=== PATIENT | female | born 1955 | race Caucasian/White ===

== ENCOUNTER → 2024-11-16 09:28 | Outpatient (REF) | payer MEDICARE, OTHER, SELFPAY | LOC: MRI 09:28 | PROVIDERS: ATTENDING PHYSICIAN Surgery; FAMILY PHYSICIAN Family Medicine | DX: R19.03 Right lower quadrant abdominal swelling, mass and lump (principal) | CPT/HCPCS: 72197; 74183; A9575 ==

== ENCOUNTER 2025-01-27 06:06 | Inpatient (IN) | payer MEDICARE, OTHER, SELFPAY ==
[2025-01-18 09:20] LABS: Hematocrit 34.8 % (37.0-47.0); Hemoglobin 11.6 g/dL (12.0-16.0); Mean Corp Hgb Conc. 33.3 g/dL (33.0-37.0); Mean Corpuscular Volume 90.2 fL (81.0-99.0); Platelet Count 289 10^3/uL (130-400); Red Cell Dist. Width 12.9 % (11.5-14.5)
[2025-01-18 09:33] LABS: INR 0.87; PT 12.3 Sec (11.4-14.6)
[2025-01-18 09:34] LABS: APTT 31.2 Sec (23.4-35.0)
[2025-01-18 09:55] LABS: ALT (SGPT) 17 U/L (0-35); AST (SGOT) 21 U/L (14-36); Albumin 4.2 g/dl (3.5-5.0); Alkaline Phosphatase 120 U/L (38-126); Blood Urea Nitrogen 16 mg/dl (7-17); Calcium 9.5 mg/dl (8.4-10.2); Carbon Dioxide 29 mmol/L (22-30); Chloride 103 mmol/L (98-107); Glucose 91 mg/dl (70-99); Potassium 4.0 mmol/L (3.5-5.1); Sodium 139 mmol/L (135-145); Total Protein 6.9 g/dl (6.3-8.2); eGFR > 60.00
[2025-01-18 10:22] LABS: CEA 2.01 ng/ml
[2025-01-18 11:33] LABS: Glycohemoglobin (HgbA1c) 5.7 % (4.0-5.6)
[2025-01-18 14:05] VITALS: BMI 25.4
--- NOTE | 2025-01-18 16:47 | PTCARENOTE ---
Abnormal ECG done 01/18/25, reviewed by Dr Laurent, no further intervention needed.
[2025-01-27] VITALS (17 sets, daily range): BP systolic 93–149; BP diastolic 41–78; BMI 25.4
[2025-01-27] MEDS: TYLENOL 1000 MG PO (07:07)
[2025-01-27] MEDS: HEPARIN 5000 UNITS SC (07:08)
[2025-01-27] MEDS: NORMOSOL-R/PLASMALYTE-A 1000 IV ×2 (07:08→15:08)
[2025-01-27] MEDS: TRANSDERM-SCOP 1 PATCH TRANSDERM (07:10)
--- NOTE | 2025-01-27 10:16 | W.IMMPOSTOP ---
Surgical Immed Post Op Note
-
Primary Surgeon: Vania Carson DO
Expedition Supervisor: NARINDER Ryder
Pre-op Diagnosis: left ovarian cyst
Post-op Diagnosis: same
Procedure Performed: Robotic left salpingo-oopherectomy
Anesthesia Type: general ET
Specimen / Cultures: left tube and ovary
Estimated Blood Loss: 2ml
Complications: none
Operative Findings: Simple appearing left ovarian cyst approx 3cm. Normal appearing uterus, tubes and atrophic right ovary.
Stable when handed care back over to Dr Moy.
--- NOTE | 2025-01-27 10:29 | W.IMMPOSTOP ---
Surgical Immed Post Op Note
-
Primary Surgeon: Vania Carson DO
Assistant Front Office Manager: NARINDER Ryder
Pre-op Diagnosis: Left ovarian cyst
Post-op Diagnosis: same
Procedure Performed: Robotic left salpingo-oopherectomy
Anesthesia Type: general ET
Specimen / Cultures: left tube and ovary
Estimated Blood Loss: <2ml
Complications: none
Operative Findings: Normal appearing uterus. Left ovary with approx 3cm cyst, appears relatively simple grossly.
Normal appearing bilateral tubes and atrophic appearing but otherwise normal appearing right ovary.
Counts correct times 2.
Stable to recovery.
--- NOTE | 2025-01-27 12:28 | W.IMMPOSTOP ---
Surgical Immed Post Op Note
-
Primary Surgeon: Rizwan Moy MD
Laboratory Director: Vania Carson DO
Physicist Cryogenics: DEE Ryder
Pre-op Diagnosis: Right lower quadrant mass
Post-op Diagnosis: Same, with left ovarian cyst
Procedure Performed: Robotic ilecolectomy with intracorporeal anastomosis
Robotic left salpingo-oophorectomy
Anesthesia Type: GET
Specimen / Cultures: Terminal ileum and right colon
Left fallopian tube and ovary
Estimated Blood Loss: 50cc
Complications: None
Operative Findings: Mass in the right lower quadrant (probable chronic appendicitis)
4cm cyst of the left ovary
Patient's updated in the waiting room
--- NOTE | 2025-01-27 14:30 | PTCARENOTE ---
Addendum entered by Vee Xavier RN 01/27/25 16:56:
patient has 5 post op incisions approximated and surgical glue.
Original Note:
Telephone report received from TERRA[employer] HELPERJUICE Henriquez; patient arrived in bed @14:30 with moscoso catheter and 94% on 3L; VSS.
[2025-01-27] MEDS: TORADOL 15 MG IV ×2 (16:11→21:47)
[2025-01-28] MEDS: NORMOSOL-R/PLASMALYTE-A 1000 IV ×3 (00:45→21:36)
[2025-01-28 03:40] VITALS: BP 96/41
[2025-01-28] MEDS: TORADOL 15 MG IV ×4 (04:24→21:36)
[2025-01-28 06:00] VITALS: BMI 25.7
[2025-01-28 06:42] LABS: Hematocrit 29.1 % (37.0-47.0); Hemoglobin 9.4 g/dL (12.0-16.0); Mean Corp Hgb Conc. 32.3 g/dL (33.0-37.0); Mean Corpuscular Volume 91.8 fL (81.0-99.0); Nucleated Red Blood Cells % 0 %; Platelet Count 234 10^3/uL (130-400); Red Cell Dist. Width 13.0 % (11.5-14.5)
[2025-01-28 07:12] LABS: Blood Urea Nitrogen 10 mg/dl (7-17); Calcium 7.6 mg/dl (8.4-10.2); Carbon Dioxide 32 mmol/L (22-30); Chloride 104 mmol/L (98-107); Estimated Creatinine Clearance 79 ml/min; Glucose 103 mg/dl (70-99); Potassium 3.6 mmol/L (3.5-5.1); Sodium 137 mmol/L (135-145); eGFR > 60.00
[2025-01-28 07:35] VITALS: BP 118/50
[2025-01-28] MEDS: LEXAPRO 10 MG PO (09:08)
[2025-01-28] MEDS: NORVASC 5 MG PO (09:08)
[2025-01-28 12:01] VITALS: BP 106/51
[2025-01-28] MEDS: TYLENOL 650 MG PO ×3 (12:37→20:35)
--- NOTE | 2025-01-28 12:48 | W.PN.CRS1 ---
Today's Communication / Plan
-
as below
Assessment/Plan
-
69-year-old female with RLQ inflammatory mass, concerning for possible Crohn's, presents for elective surgery
POD 1 robotic ileocolic resection with left salpingo-oophorectomy by Dr. Carson for ovarian cyst
AFVSS
WBC 10.2, Hb 9.4 from 11.6, CR 0.6
- Due to some distention and lack of bowel function, will keep on clears
� Repeat CBC at 1 PM; if Hb stable, will start DVT PPx with Lovenox
� Pain control with Tylenol, oxycodone and Dilaudid as needed
� Continue home meds
� Encourage incentive spirometry/OOB; appreciate PT
Subjective Data
Subjective Data
Date of Service: January 28, 2025
No overnight events, denies N/V, tolerating clears and pain controlled. No flatus or BMs yet. Hatch in place
Objective Data
-
Vital Signs
Temp Pulse Resp BP Pulse Ox
97.9 F 61 16 106/51 94
01/28/25 12:01 01/28/25 12:01 01/28/25 12:01 01/28/25 12:01 01/28/25 12:01
Intake & Output
01/27/25 01/28/25 01/29/25
06:59 06:59 06:59
Intake Total 1440 / 1440
Output Total 700 / 700
Balance 740 / 740
Intake:
IV fluids (Total) 1440 / 1440
normosol 200 / 200
Output:
Urine, Hatch 500 / 500
Urine, Voided 200 / 200
Lab Results
01/28/25 06:09
Physical Exam
-
General: No Acute Distress and AOx3
HEENT: Grossly Normal
Abdomen: Soft, Distended (Mildly distended), Tender (Appropriately tender near incisions), No Guarding and No Rebound
Skin: Warm and Dry
Wound: No Signs of Infection, Dressing in Place (Dermabond) and No Skin Erythema
[2025-01-28 13:38] LABS: Hematocrit 28.5 % (37.0-47.0); Hemoglobin 9.2 g/dL (12.0-16.0)
--- NOTE | 2025-01-28 14:41 | CM ---
Patient seen bedside w/ spouse, initial assessment completed. POD 1 robotic ileocolic resection with left salpingo-oophorectomy by Dr. Carson for ovarian cyst.
Patient resides w/ spouse in a 2ST[facility], 1 small step to enter from the outside. Patient is independent w/ ambulation, no device required. Independent w/ ADLs and personal care. No DME. No SNF/HC hx. OP therapy hx, nothing current or recent.
Address, point of contact and insurance verified
PCP: Mirian Mcneill
Pharmacy: [facility]
PT indicated no skilled needs at d/c
Plan: Home, no needs
[2025-01-28 15:35] VITALS: BP 113/66
[2025-01-28] MEDS: LOVENOX 40 MG SC (17:51)
[2025-01-28 18:19] LABS: Hepatitis C Antibody Negative (Negative)
[2025-01-28 23:35] VITALS: BP 149/61
[2025-01-29] MEDS: TYLENOL PO ×2 (01:03→04:51)
[2025-01-29] MEDS: NORMOSOL-R/PLASMALYTE-A IV (01:03)
[2025-01-29] MEDS: TORADOL 15 MG IV ×4 (04:18→21:47)
[2025-01-29 06:00] VITALS: BMI 25.2
[2025-01-29 07:44] LABS: Hematocrit 31.4 % (37.0-47.0); Hemoglobin 10.4 g/dL (12.0-16.0); Mean Corp Hgb Conc. 33.1 g/dL (33.0-37.0); Mean Corpuscular Volume 92.4 fL (81.0-99.0); Platelet Count 251 10^3/uL (130-400); Red Cell Dist. Width 13.1 % (11.5-14.5)
[2025-01-29 07:45] VITALS: BP 155/71
[2025-01-29 08:24] LABS: Blood Urea Nitrogen 6 mg/dl (7-17); Calcium 8.4 mg/dl (8.4-10.2); Carbon Dioxide 30 mmol/L (22-30); Chloride 107 mmol/L (98-107); Estimated Creatinine Clearance 79 ml/min; Glucose 104 mg/dl (70-99); Potassium 3.3 mmol/L (3.5-5.1); Sodium 140 mmol/L (135-145); eGFR > 60.00
[2025-01-29] MEDS: LEXAPRO 10 MG PO (09:13)
[2025-01-29] MEDS: NORVASC 5 MG PO (09:13)
[2025-01-29] MEDS: KCL 40 MEQ PO (09:13)
[2025-01-29] MEDS: TYLENOL 650 MG PO ×4 (09:14→21:47)
--- NOTE | 2025-01-29 10:12 | W.PN.CRS1 ---
Addendum entered and electronically signed by Jose Ga MD 01/29/25 18:44:
I saw and examined the patient.
The MICROARRAY ANALYST's note was reviewed and I agree with the note.
Comment:
Doing well, tolerated fulls for lunch, passing flatus and had a BM. Pain better controlled today.
WBC 6.7, Hb stable, CR 0.5
� Advance to low residue
� Continue pain control with Toradol, oxycodone and Dilaudid as needed
� If tolerating diet, possible DC tomorrow
Original Note:
Today's Communication / Plan
-
Full liquids, ADAT
replace K
Assessment/Plan
-
69-year-old female with RLQ inflammatory mass, concerning for possible Crohn's, presents for elective surgery
POD 2 robotic ileocolic resection with left salpingo-oophorectomy by Dr. Carson for ovarian cyst
AFVSS
Mild acute blood loss anemia with component of hemodilution. Stable on repeat.
Renal function stable, mild hypokalemia
+flatus, tolerating clears. Doesn't feel ready for solids yet
Plan:
- FLD
� VTE ppx with lovenox 40mg sq, SCDs while in bed
� Pain control with Tylenol, Toradol scheduled and oxycodone and Dilaudid as needed
� Continue home meds
- D/C IVF
- PO kdur x1 dose, will repeat labs in am
� Encourage incentive spirometry/OOB; appreciate PT
Subjective Data
Procedure
01/27/25 Robotic ilecolectomy with intracorporeal anastomosis ([facility])
Robotic left salpingo-oophorectomy ([facility])
Subjective Data
Date of Service: January 29, 2025
Pt seen and examined at bedside. OOB to chair. Notes pain is much better today. Passing flatus. Denies n/v.
Objective Data
-
Vital Signs
Temp Pulse Resp BP Pulse Ox
98 F 61 16 155/71 97
01/29/25 07:45 01/29/25 07:45 01/29/25 07:45 01/29/25 07:45 01/29/25 07:45
Intake & Output
01/28/25 01/29/25 01/30/25
06:59 06:59 06:59
Intake Total 1440 / 1440 1600 / 1600
Output Total 700 / 700 925 / 925
Balance 740 / 740 675 / 675
Intake:
Oral fluids 560 / 560
IV fluids (Total) 1440 / 1440 1040 / 1040
normosol 200 / 200
Output:
Urine, Hatch 500 / 500
Urine, Voided 200 / 200 925 / 925
Other:
Number of approximated MODERATE 1
amounts of urine
Lab Results
01/29/25 07:25
01/29/25 07:25
Physical Exam
-
General: No Acute Distress and AOx3
HEENT: Grossly Normal
Abdomen: Soft, Non Distended, Tender (Appropriately tender near incisions), No Guarding and No Rebound
Skin: Warm and Dry
Wound: No Signs of Infection, Dressing in Place (Dermabond) and No Skin Erythema
[2025-01-29 15:38] VITALS: BP 129/61
[2025-01-29] MEDS: FLUSH (NSS) 2 FLUSH IV (15:52)
[2025-01-29] MEDS: LOVENOX 40 MG SC (17:13)
[2025-01-29 23:00] VITALS: BP 130/65
[2025-01-30] MEDS: TYLENOL PO (00:42)
[2025-01-30] MEDS: TYLENOL 650 MG PO ×2 (04:17→09:08)
[2025-01-30] MEDS: FLUSH (NSS) 2 FLUSH IV (04:17)
[2025-01-30] MEDS: TORADOL 15 MG IV ×2 (04:17→09:09)
[2025-01-30 04:28] VITALS: BMI 24.2
[2025-01-30 07:50] VITALS: BP 132/66
[2025-01-30 08:18] LABS: Hematocrit 33.1 % (37.0-47.0); Hemoglobin 10.9 g/dL (12.0-16.0); Mean Corp Hgb Conc. 32.9 g/dL (33.0-37.0); Mean Corpuscular Volume 89.5 fL (81.0-99.0); Platelet Count 301 10^3/uL (130-400); Red Cell Dist. Width 12.6 % (11.5-14.5)
[2025-01-30 08:24] LABS: Blood Urea Nitrogen 9 mg/dl (7-17); Calcium 9.1 mg/dl (8.4-10.2); Carbon Dioxide 29 mmol/L (22-30); Chloride 106 mmol/L (98-107); Estimated Creatinine Clearance 79 ml/min; Glucose 103 mg/dl (70-99); Magnesium 1.9 mg/dl (1.6-2.3); Potassium 3.8 mmol/L (3.5-5.1); Sodium 139 mmol/L (135-145); eGFR > 60.00
--- NOTE | 2025-01-30 08:42 | W.PN.CRS1 ---
Today's Communication / Plan
-
dispo
Assessment/Plan
-
69-year-old female with RLQ inflammatory mass, concerning for possible Crohn's, presents for elective surgery
POD 3 robotic ileocolic resection with left salpingo-oophorectomy by Dr. Carson for ovarian cyst
AFVSS
WBC 5.8, Hgb 10.9 (10.4)
Plan:
- Tolerating low residue
� VTE ppx with lovenox 40mg sq, SCDs while in bed
� Pain control with Tylenol, Toradol scheduled and oxycodone and Dilaudid as needed
� Continue home meds
� Encourage incentive spirometry/OOB; appreciate PT
- Okay for discharge today. All discharge instructions discussed with patient including medications, activity levels, and follow up. All questions addressed.
Subjective Data
Procedure
01/27/25 Robotic ilecolectomy with intracorporeal anastomosis ([facility])
Robotic left salpingo-oophorectomy ([facility])
Subjective Data
Date of Service: January 30, 2025
Patient is doing well. She is tolerating a diet. She has no nausea or vomiting. Has bowel function.
Objective Data
-
Vital Signs
Temp Pulse Resp BP Pulse Ox
98 F 61 16 132/66 97
01/30/25 07:50 01/30/25 07:50 01/30/25 07:50 01/30/25 07:50 01/30/25 07:50
Intake & Output
01/29/25 01/30/25 01/31/25
06:59 06:59 06:59
Intake Total 1600 / 1600 560 / 560
Output Total 925 / 925
Balance 675 / 675 560 / 560
Intake:
Oral fluids 560 / 560 560 / 560
IV fluids (Total) 1040 / 1040
Output:
Urine, Voided 925 / 925
Other:
Number of approximated MODERATE 1 2 1
amounts of urine
Lab Results
01/30/25 07:28
01/30/25 07:28
Physical Exam
-
General: No Acute Distress and AOx3
Abdomen: Soft, Non Distended and Non Tender
Skin: Warm and Dry
Incision: Clear, Dry, Intact
[2025-01-30] MEDS: NORVASC 5 MG PO (09:09)
[2025-01-30] MEDS: LEXAPRO 10 MG PO (09:09)
--- NOTE | 2025-01-30 09:34 | CM ---
Reviewed the chart notes and spoke with the patient at the bedside. IMM reviewed. The patient is being discharged to home today. Spouse will provide transportation. CM continues to be available to patient/family and is monitoring medical plan
for needs at discharge.
Plan: Discharge to home with no needs identified at this time.
[2025-01-30 11:01] VITALS: BP 132/67
== END 2025-01-30 11:20 | disposition home or self-care (01) | DRG 330 ==
LOC: 2 SOUTH 06:06
PROVIDERS: Obstetrics & Gynecology; Registered Nurse; ADMITTING PHYSICIAN Surgery; FAMILY PHYSICIAN Family Medicine
PROC: 0DTK4ZZ Resection of Ascending Colon, Percutaneous Endoscopic Approach (ICD-10-PCS; 2025-01-27)
PROC: 8E0W4CZ Robotic Assisted Procedure of Trunk Region, Percutaneous Endoscopic Approach (ICD-10-PCS; 2025-01-27)
PROC: 0DTB4ZZ Resection of Ileum, Percutaneous Endoscopic Approach (ICD-10-PCS; 2025-01-27)
PROC: 0UT14ZZ Resection of Left Ovary, Percutaneous Endoscopic Approach (ICD-10-PCS; 2025-01-27)
PROC: 0UT64ZZ Resection of Left Fallopian Tube, Percutaneous Endoscopic Approach (ICD-10-PCS; 2025-01-27)
DX: K36 Other appendicitis (principal); D62 Acute posthemorrhagic anemia; N83.292 Other ovarian cyst, left side; R19.03 Right lower quadrant abdominal swelling, mass and lump; Z79.899 Other long term (current) drug therapy
CPT/HCPCS: 36415; 80048; 80053; 82378; 83036; 83735; 85014; 85018; 85025; 85027; 85610; 85730; 86803; 86850; 86900; 86901; 88305; 88307; 93005; 97162; J1335